=== PATIENT | female | born 1950 | race Caucasian/White ===

== ENCOUNTER 2020-03-20 19:49 | Emergency (ER) | payer MEDICARE ==
[~2020-03-20] VITALS: Ht 172.7 cm; Wt 84.5 kg
[2020-03-20] MEDS ORDERED: AMLO-93 PO (20:09)
[2020-03-20] MEDS ORDERED: NADO20TA5 PO (20:09)
[2020-03-20 20:16] LABS: BASOPHILS # (AUTO) 0.1 X10'3 (0-0.2); BASOPHILS % (AUTO) 0.8 % (0-1); EOSINOPHILS # (AUTO) 0.1 X10'3 (0-0.9); EOSINOPHILS % (AUTO) 1.9 % (0-6); HEMOGLOBIN 13.5 g/dl (12.0-16.0); LYMPHOCYTES # (AUTO) 1.8 X10'3 (1.1-4.8); LYMPHOCYTES % (AUTO) 26.5 % (21-51); MEAN CORPUSCULAR HEMOGLOBIN 28.9 PG (27.0-31.0); MEAN CORPUSCULAR HGB CONC 33.1 g/dL (33.0-36.5); MEAN CORPUSCULAR VOLUME 87.5 FL (78-98); MEAN PLATELET VOLUME 8.9 FL (7.4-10.4); MONOCYTES # (AUTO) 0.7 X10'3 (0-0.9); NEUTROPHILS # (AUTO) 4.2 X10'3 (1.8-7.7); NEUTROPHILS % (AUTO) 60.8 % (42-75); PLATELET COUNT 247 X10'3 (140-440); RED BLOOD COUNT 4.68 X10'6 (4.20-5.60); RED CELL DISTRIBUTION WIDTH 14.2 % (11.5-14.5); WHITE BLOOD COUNT 6.9 X10'3 (4.5-11.0)
[2020-03-20 20:25] LABS: ALANINE AMINOTRANSFERASE 24 U/L (12-78); ALBUMIN 3.9 G/DL (3.4-5.0); ALKALINE PHOSPHATASE 70 IU/L (46-116); ANION GAP 6 (8-16); ASPARTATE AMINO TRANSFERASE 19 U/L (10-37); BILIRUBIN,TOTAL 0.8 MG/DL (0.1-1.0); BLOOD UREA NITROGEN 19 MG/DL (7-18); BUN/CREATININE RATIO 13.3 (6.6-38.0); CHLORIDE 104 MMOL/L (99-107); CREATININE 1.43 MG/DL (0.40-0.90); GLUCOSE 116 MG/DL (70-104); POTASSIUM 4.1 MMOL/L (3.5-5.1); SODIUM 141 MMOL/L (135-145); TOTAL CARBON DIOXIDE 30.7 MMOL/L (24-32); eGFR 36 ML/MIN
[2020-03-20 23:53] VITALS: BP 162/82
== END 2020-03-21 00:47 | disposition home or self-care (01) ==
LOC: ER 19:49
DX: R00.2 Palpitations (principal); R07.89 Other chest pain; R11.0 Nausea; R06.02 Shortness of breath; Z88.5 Allergy status to narcotic agent; Z79.899 Other long term (current) drug therapy
CPT/HCPCS: 36415; 71045; 80053; 83880; 84484; 85025; 93005; 99285

== ENCOUNTER 2020-10-04 00:17 | Emergency (ER) | payer MEDICARE ==
[~2020-10-04] VITALS: Ht 172.7 cm; Wt 88.2 kg
[~2020-10-04 00:17] MED LIST: AMLO-93 PO; NADO20TA5 PO
[2020-10-04 01:57] LABS: BASOPHILS # (AUTO) 0.1 X10'3 (0-0.2); EOSINOPHILS # (AUTO) 0.1 X10'3 (0-0.9); EOSINOPHILS % (AUTO) 2.1 % (0-6); HEMATOCRIT 40.3 % (35.0-45.0); HEMOGLOBIN 13.6 g/dl (12.0-16.0); LYMPHOCYTES # (AUTO) 1.5 X10'3 (1.1-4.8); LYMPHOCYTES % (AUTO) 23.5 % (21-51); MEAN CORPUSCULAR HEMOGLOBIN 28.6 PG (27.0-31.0); MEAN CORPUSCULAR HGB CONC 33.7 g/dL (33.0-36.5); MEAN PLATELET VOLUME 8.7 FL (7.4-10.4); MONOCYTES # (AUTO) 0.6 X10'3 (0-0.9); MONOCYTES % (AUTO) 9.1 % (2-12); NEUTROPHILS # (AUTO) 4.1 X10'3 (1.8-7.7); NEUTROPHILS % (AUTO) 64.3 % (42-75); PLATELET COUNT 230 X10'3 (140-440); RED BLOOD COUNT 4.74 X10'6 (4.20-5.60); RED CELL DISTRIBUTION WIDTH 14.4 % (11.5-14.5); WHITE BLOOD COUNT 6.3 X10'3 (4.5-11.0)
[2020-10-04 02:13] LABS: ALANINE AMINOTRANSFERASE 22 U/L (12-78); ALBUMIN 3.7 G/DL (3.4-5.0); ALKALINE PHOSPHATASE 59 IU/L (46-116); ANION GAP 8 (8-16); ASPARTATE AMINO TRANSFERASE 19 U/L (10-37); BILIRUBIN,TOTAL 0.9 MG/DL (0.1-1.0); BLOOD UREA NITROGEN 14 MG/DL (7-18); BUN/CREATININE RATIO 15.1 (6.6-38.0); CALCIUM 8.3 MG/DL (8.5-10.1); CHLORIDE 107 MMOL/L (99-107); CREATININE 0.93 MG/DL (0.40-0.90); GLUCOSE 106 MG/DL (70-104); POTASSIUM 3.8 MMOL/L (3.5-5.1); SODIUM 144 MMOL/L (135-145); TOTAL CARBON DIOXIDE 29.5 MMOL/L (24-32); TOTAL PROTEIN 7.4 G/DL (6.4-8.2); eGFR 59 ML/MIN
[2020-10-04] MEDS ORDERED: acetaminophen 325mg tablet PO STA (02:29)
[2020-10-04] MEDS ORDERED: APIX5TAB3 PO (02:36)
[2020-10-04] MEDS ORDERED: SOTA80TA73 PO (02:36)
[2020-10-04] MEDS ORDERED: cloNIDine 0.1 mg tablet PO STA (03:55)
--- NOTE | 2020-10-04 03:56 | NUR ---
spoke with MD and asked for bp tx and so I ordered clonidine per his OK.
[2020-10-04 04:22] VITALS: BP 171/78
== END 2020-10-04 04:23 | disposition home or self-care (01) ==
LOC: ER 00:17
DX: I10 Essential (primary) hypertension (principal); R51.9 Headache, unspecified; I48.91 Unspecified atrial fibrillation; Z88.5 Allergy status to narcotic agent; Z79.899 Other long term (current) drug therapy
CPT/HCPCS: 36415; 71045; 80053; 83880; 84484; 85025; 93005; 99285

== ENCOUNTER 2021-07-17 11:00 | Emergency (ER) | payer MEDICARE ==
[~2021-07-17] VITALS: Ht 172.7 cm; Wt 86.5 kg
[~2021-07-17 11:00] MED LIST changes: +AMLO-140 PO; -AMLO-93 PO; +APIX5TAB3 PO; -NADO20TA5 PO; +SOTA80TA73 PO
[2021-07-17] MEDS ORDERED: cetirizine 10mg tablet PO STA (11:46)
[2021-07-17] MEDS ORDERED: CEPH250T PO (11:52)
[2021-07-17] MEDS ORDERED: CETI10TA15 PO (11:52)
[2021-07-17 12:14] VITALS: BP 132/84
== END 2021-07-17 12:16 | disposition home or self-care (01) ==
LOC: ER 11:02
DX: T78.40XA Allergy, unspecified, initial encounter (principal); R22.0 Localized swelling, mass and lump, head; I48.91 Unspecified atrial fibrillation; I10 Essential (primary) hypertension; Z88.5 Allergy status to narcotic agent; Z79.2 Long term (current) use of antibiotics; Z79.899 Other long term (current) drug therapy; Y92.89 Other specified places as the place of occurrence of the external cause
CPT/HCPCS: 99283